=== PATIENT | male | born 1980 | race Caucasian/White ===

== ENCOUNTER 2024-01-20 14:25 | Emergency (ER) | payer BC, SELFPAY ==
[2024-01-20 14:30] VITALS: BP 137/93; PULSE 76; TEMP 36.6; O2SAT 100; BMI 286.3
--- NOTE | 2024-01-20 14:33 | ED_ITS ---
HPI - Animal Bite General Chief Complaint: Animal Bite Stated Complaint: DOG BITE Time Seen by Provider: 01/20/24 14:32 History of Present Illness HPI narrative: This patient is here complaining of a laceration to his left wrist x-ray this is a dog bite. He has a [employer] and pitbull at home. They were fighting with each other and he tried to break up the fight and he got bit. He is not sure of his last tetanus shot so that will be updated as well. Injury occurred shortly before arrival here. He has a nice sized laceration on the dorsum of his left wrist and a small puncture wound on the volar aspect of the wrist. He has no loss of feeling. There is no history of arterial bleeding and it is not bleeding now. He is otherwise healthy. Related Data Allergies Allergy/AdvReac Type Severity Reaction Status Date / Time No Known Drug Allergies Allergy Verified 01/20/24 14:29 Exam Narrative Exam Narrative: Very pleasant gentleman here with his female specialty development consultant. Problem focused examination shows a 2 and half centimeter clean incisional laceration on the dorsal aspect of his left wrist. There is a 1/2 cm puncture wound on the volar aspect. Neurovascular examination distally is normal. There is no arterial bleeding. Capillary fill to all the digits is normal. There is no evidence of foreign body or devitalized tissue. Constitutional Vital Signs, click to edit/add: Last Vital Signs Temp 98 F 01/20/24 14:30 Pulse 76 01/20/24 14:30 Resp 16 01/20/24 14:30 BP 137/93 H 01/20/24 14:30 Pulse Ox 100 01/20/24 14:30 O2 Del Method Room Air 01/20/24 14:30 Course Vital Signs Vital signs: Vital Signs Temperature 98 F 01/20/24 14:30 Pulse Rate 76 01/20/24 14:30 Respiratory Rate 16 01/20/24 14:30 Blood Pressure 137/93 H 01/20/24 14:30 Pulse Oximetry 100 01/20/24 14:30 Oxygen Delivery Method Room Air 01/20/24 14:30 Temperature 98 F 01/20/24 14:30 Pulse Rate 76 01/20/24 14:30 Respiratory Rate 16 01/20/24 14:30 Blood Pressure 137/93 H 01/20/24 14:30 Pulse Oximetry 100 01/20/24 14:30 Oxygen Delivery Method Room Air 01/20/24 14:30 MDM - Animal Bite MDM Narrative Medical decision making narrative: Procedure note after lidocaine 1% anesthesia to both wounds both wounds were copiously irrigated with very dilute Betadine solution. He tolerated that well. The volar wound will be left to heal on secondary intention since it was quite small the dorsal wound was reapproximated with four 4-0 nylon simple interrupted sutures. He tolerated the procedure well. We will place him on Augmentin. The tendinous structures on the dorsum and the rest were not violated Discharge Plan Discharge Stand Alone Forms: Portal Instructions Chief Complaint: Animal Bite Clinical Impression: Animal bite of dorsum of hand Patient Disposition: Home, Self-Care Time of Disposition Decision: 14:48 Print Language: Bengali Additional Instructions: Augmentin/return for any evidence of infection as discussed/stitches out 10 days Referrals: TAURUS BECKFORD [Primary Care Provider] - 1 week
[2024-01-20] MEDS: SODIUM CHLORIDE 0.9% IRRIG SOLUTION 1,000 ML BOTTLE 1000 ML IRR (15:03)
[2024-01-20] MEDS: BACITRACIN 0.9 GM PACKET 1 PACKET TOPICAL (15:03)
[2024-01-20] MEDS: LIDOCAINE HCL 1%-EPINEPHRINE 1:100,000 20 ML MDV INJ (15:03)
[2024-01-20] MEDS: ADACEL DIPH,PERTUSS(ACELL),TET VAC/PF 0.5 ML ADULT SYRINGE IM (15:04)
== END 2024-01-20 15:31 | disposition home or self-care (01) ==
PROVIDERS: Emergency Provider Emergency Medicine Emergency Medical Services; PCP Internal Medicine
DX: S61.552A Open bite of left wrist, initial encounter (principal); W54.0XXA Bitten by dog, initial encounter; Z23 Encounter for immunization
CPT/HCPCS: 12001; 90471; 90715; 99284